=== PATIENT | male | born 1955 | race American Indian/Alaskan Native ===

== ENCOUNTER 2022-03-02 06:56 | Emergency (ER) | payer OTHER ==
[2022-03-02 07:39] VITALS: BP 124/73
--- NOTE | 2022-03-02 11:47 | Emergency Department Report ---
HPI - General Chief Complaint: Extremity Injury, Lower Time Seen by Provider: 03/02/22 11:36 - HPI HPI: Room 30 The patient is a 66-year-old male present with chief complaint left lower extremity pain and swelling. Patient states approximately 1 week ago he was stung on his left flank arm and left lower extremity. Patient states he fell while he was being stung and has had pain and swelling in his left calf since. Patient states he went to an urgent care facility after he was stung and was started on Medrol Dosepak. Patient presents to the ED because he states he still has pain and swelling of the left lower extremity. Patient currently gi ves his pain score 3/10. Patient states there were no x-rays performed at the urgent care facility ED Past Medical Hx - Past Medical History Previous Medical History?: No - Surgical History Past Surgical History?: No - Family History Family history: no significant - Social History Smoking Status: Never Smoker Substance Use Type: None - Medications Home Medications: Home Medications Medication Instructions Recorded Confirmed Last Taken Type traMADoL [Ultram] 50 mg PO Q6HR PRN #14 tablet 03/02/22 Unknown Rx ED Review of Systems ROS: Stated complaint: LT LEG PAIN Other details as noted in HPI Constitutional: no symptoms reported Eyes: denies: eye pain ENT: denies: throat pain Respiratory: no symptoms reported Cardiovascular: denies: chest pain Endocrine: no symptoms reported Gastrointestinal: denies: abdominal pain Genitourinary: denies: dysuria Musculoskeletal: myalgia Neurological: denies: headache Physical Exam - Physical Exam Vital Signs: Vital Signs 03/02/22 07:36 Temperature 98.3 F Pulse Rate 56 L Respiratory 18 Rate Blood Pressure 124/73 [Right] O2 Sat by Pulse 100 Oximetry Physical Exam: GENERAL: The patient is well-developed well-nourished male sitting in chair not appearing to be in acute distress HEENT: Normocephalic. Atraumatic. Extraocular motions are intact. Patient has moist mucous membranes. NECK: Supple. Trachea midline CHEST/LUNGS: Clear to auscultation. There is no respiratory distress noted. HEART/CARDIOVASCULAR: Regular. There is no tachycardia. There is no gallop rub or murmur. ABDOMEN: Abdomen is soft, nontender. Patient has normal bowel sounds. There is no abdominal distention. SKIN: There is no rash. There is 1+ left lower extremity pitting edema. There is no diaphoresis. NEURO: The patient is awake, alert, and oriented. The patient is cooperative. The patient has no focal neurologic deficits. The patient has normal speech. GCS 15 MUSCULOSKELETAL: There is mild tenderness to palpation in the left popliteal fossa. No cords felt. ED Course Vital Signs 03/02/22 07:36 Temperature 98.3 F Pulse Rate 56 L Respiratory 18 Rate Blood Pressure 124/73 [Right] O2 Sat by Pulse 100 Oximetry ED Medical Decision Making - Radiology Data Radiology results: report reviewed (Left tib-fib x-ray, left lower extremity Doppler), image reviewed (Left tib-fib x-ray, left lower extremity Doppler) interpreted by me: Left tib-fib x-ray-no acute fracture, no dislocation [address] [address] XRay Report Signed Patient: TREV SAINI MR#: [id number] 30 : 1955 Acct:[id number] Age/Sex: 66 / M ADM Date: 03/02/22 Loc: ED Attending Dr: Ordering Physician: ANN PEDROZA MD Date of Service: 03/02/22 Procedure(s): XR tibia fibula 2V LT Accession Number(s): [id number] cc: ANN PEDROZA MD Fluoro Time In Minutes: LEFT TIBIA-FIBULA 2 VIEW(S) INDICATION / CLINICAL INFORMATION: Pain and swelling after fall COMPARISON: None available. FINDINGS: BONES / JOINT(S): No acute fracture or subluxation. No significant arthritis. SOFT TISSUES: No significant abnormality. ADDITIONAL FINDINGS: None. IMPRESSION: 1. No acute findings. Signer Name: Dangelo Serrato MD Signed: 03/02/2022 12:21 PM Workstation Name: [id number] Transcribed By: JW Dictated By: DANGELO SERRATO MD Electronically Authenticated By: DANGELO SERRATO MD Signed Date/Time: 03/02/22 1221 DD/ 1220 TD/TT: [address] [address] Vascular Lab Report Signed Patient: TREV SAINI MR#: [id number] 30 : 1955 Acct:[id number] Age/Sex: 66 / M ADM Date: 03/02/22 Loc: ED Attending Dr: Ordering Physician: ANN PEDROZA MD Date of Service: 03/02/22 Procedure(s): VL venous duplex LE LT Accession Number(s): [id number] cc: ANN PEDROZA MD DUPLEX DOPPLER LOWER EXTREMITY VEINS, LEFT INDICATION / CLINICAL INFORMATION: Pain and swelling. TECHNIQUE: Duplex doppler imaging was performed through the veins of the left lower extremity using venous compression and other maneuvers. COMPARISON: None available. FINDINGS: LEFT COMMON FEMORAL VEIN: Negative. LEFT FEMORAL VEIN: Negative. LEFT POPLITEAL VEIN: Negative. LEFT CALF VEINS: Negative. ADDITIONAL FINDINGS: None. IMPRESSION: 1. No sonographic evidence for DVT in the left lower extremity. Signer Name: Aries Woods MD Signed: 03/02/2022 3:26 PM Workstation Name: [id number] Transcribed By: DT Dictated By: Mario Woods MD Electronically Authenticated By: Mario Woods MD Signed Date/Time: 03/02/221525 DD/ 24 TD/TT: - Differential Diagnosis Allergic reaction, DVT, occult fracture Critical care attestation.: If time is entered above; I have spent that time in minutes in the direct care of this critically ill patient, excluding procedure time. ED Disposition Clinical Impression: Left leg swelling Disposition: 01 HOME / SELF CARE / HOMELESS Is pt being admited?: No Does the pt Need Aspirin: No Condition: Stable Additional Instructions: Return to the emergency department should you develop worsening symptoms, inability to tolerate food or liquids, high fever or any other concerns Prescriptions: traMADoL [Ultram] 50 mg PO Q6HR PRN #14 tablet PRN Reason: Pain Referrals: JONA LACEY MD [Primary Care Provider] - 3-5 Days Time of Disposition: 15:38
--- NOTE | 2022-03-02 12:25 | XRay Report ---
LEFT TIBIA-FIBULA 2 VIEW(S) INDICATION / CLINICAL INFORMATION: Pain and swelling after fall COMPARISON: None available. FINDINGS: BONES / JOINT(S): No acute fracture or subluxation. No significant arthritis. SOFT TISSUES: No significant abnormality. ADDITIONAL FINDINGS: None. IMPRESSION: 1. No acute findings. Signer Name: Maxime Walsh MD Signed: 03/02/2022 12:21 PM Workstation Name: [email or web address]
--- NOTE | 2022-03-02 15:30 | Vascular Lab Report ---
DUPLEX DOPPLER LOWER EXTREMITY VEINS, LEFT INDICATION / CLINICAL INFORMATION: Pain and swelling. TECHNIQUE: Duplex doppler imaging was performed through the veins of the left lower extremity using v enous compression and other maneuvers. COMPARISON: None available. FINDINGS: LEFT COMMON FEMORAL VEIN: Negative. LEFT FEMORAL VEIN: Negative. LEFT POPLITEAL VEIN: Negative. LEFT CALF VEINS: Negative. ADDITIONAL FINDINGS: None. IMPRESSION: 1. No sonographic evidence for DVT in the left lower extremity. Signer Name: Aries Woods MD Signed: 03/02/2022 3:26 PM Workstation Name: [id number]
== END 2022-03-02 15:44 | disposition home or self-care (01) ==
LOC: ED 06:56
DX: R22.42 Localized swelling, mass and lump, left lower limb (principal); M79.662 Pain in left lower leg; Z79.899 Other long term (current) drug therapy
CPT/HCPCS: 99284